=== PATIENT | female | born 1985 | race Two or more races ===

== ENCOUNTER 2021-08-26 13:41 | Inpatient (IN) | payer BC, OTHER ==
[~2021-08-26] VITALS: Ht 157.5 cm; Wt 84.0 kg
[2021-08-26 14:25] LABS: Basophils # (auto) 0.1 10 ^3/uL (0-0.2); Basophils % (auto) 2.2 % (0.0-2.0); Eosinophils # (auto) 0 10 ^3/uL (0-0.8); Eosinophils % (auto) 0.4 % (0.0-7.0); Hematocrit 38.2 % (36.0-46.0); Lymphocytes # (auto) 1.3 10 ^3/uL (0.4-5.4); Lymphocytes % (auto) 19.1 % (10.0-50.0); Mean Corpuscular Hemoglobin 31.2 pg (28.0-32.0); Mean Corpuscular Hgb Conc. 33.9 g/dL (32.0-36.0); Monocytes # (auto) 0.4 10 ^3/uL (0-1.3); Monocytes % (auto) 6.4 % (0.0-12.0); Neutrophils # (auto) 4.8 10 ^3/uL (1.6-8.6); Neutrophils % (auto) 71.9 % (37.0-80.0); Nucleated Red Blood Cells % 0.1 %; Red Blood Cells 4.15 10^6/uL (4.0-5.20); Red Cell Distribution Width 13.6 % (11.8-14.3); White Blood Cell 6.7 10^3/uL (4.4-10.8)
[2021-08-26 14:36] LABS: Urine Bacteria FEW /hpf (None Seen); Urine Blood TRACE /uL (Negative); Urine Specific Gravity 1.007 (1.001-1.035); Urine WBC 1 /hpf (0 - 5)
[2021-08-26 14:42] LABS: Albumin 3.6 g/dL (3.4-5.0); Calcium 8.7 mg/dL (8.5-10.1); Potassium 3.6 mmol/L (3.5-5.1)
[2021-08-26 14:53] LABS: BUN/Creatinine Ratio 9.6; Bilirubin, Total 0.9 mg/dL (0.2-1.0); Total Protein 6.8 g/dL (6.4-8.2)
[2021-08-26] MEDS ORDERED: CLOPIDOGREL BISULFATE 75 MG TAB PO ONE (15:45)
[2021-08-26] MEDS ORDERED: NITROGLYCERIN 0.4 MG SL TAB SL PRN (18:15)
[2021-08-26] MEDS ORDERED: MORPHINE SULFATE INJECTION 2 MG/ML SYRG IV PRN ×2 (18:15→19:15)
[2021-08-26] MEDS ORDERED: hydrALAZINE HCL 20 MG/ML VL IV PRN (19:15)
[2021-08-26] MEDS ORDERED: HYDROcodone-ACET 5/325MG TAB PO ONE (19:15)
[2021-08-26] MEDS ORDERED: LORazepam 0.5 MG TAB PO PRN (19:15)
[2021-08-26] MEDS ORDERED: ONDANSETRON HCL 4 MG/2 ML VIAL IV PRN (19:15)
[2021-08-26 21:20] VITALS: BP 125/79
[2021-08-26] MEDS ORDERED: LEV100T PO (22:15)
[2021-08-26] MEDS ORDERED: CHOL20007 PO (22:17)
[2021-08-26] MEDS: ATORVASTATIN 20 MG TAB PO SCH (22:31)
[2021-08-27] MEDS ORDERED: HYDROcodone-ACET 5/325MG TAB PO PRN
[2021-08-27 02:21] LABS: INR 1.03 (0.9-1.15); Partial Thromboplastin Time 26.4 sec (23.6-33.0)
[2021-08-27 05:20] VITALS: BP 117/76
[2021-08-27 07:55] LABS: INR 1.02 (0.9-1.15); Partial Thromboplastin Time 27.4 sec (23.6-33.0)
[2021-08-27 07:57] LABS: Albumin 3.4 g/dL (3.4-5.0); Calcium 8.6 mg/dL (8.5-10.1); Potassium 3.8 mmol/L (3.5-5.1)
[2021-08-27 08:00] VITALS: BP 138/79
[2021-08-27 08:01] LABS: BUN/Creatinine Ratio 11.8; Bilirubin, Total 0.8 mg/dL (0.2-1.0); CRP High Sensitivity 0.18 mg/dL (< 0.3); Phosphorus 3.2 mg/dL (2.5-4.90); Total Protein 6.5 g/dL (6.4-8.2)
[2021-08-27 09:00] VITALS: BP 138/79
[2021-08-27 10:22] LABS: Basophils # (auto) 0.1 10 ^3/uL (0-0.2); Basophils % (auto) 0.9 % (0.0-2.0); Eosinophils # (auto) 0.1 10 ^3/uL (0-0.8); Hematocrit 37.3 % (36.0-46.0); Hemoglobin 13.2 g/dL (12.2-16.2); Lymphocytes # (auto) 1.7 10 ^3/uL (0.4-5.4); Lymphocytes % (auto) 29.7 % (10.0-50.0); Mean Corpuscular Hemoglobin 32.4 pg (28.0-32.0); Mean Corpuscular Hgb Conc. 35.5 g/dL (32.0-36.0); Mean Corpuscular Volume 91.3 fL (80.0-100.0); Monocytes # (auto) 0.4 10 ^3/uL (0-1.3); Monocytes % (auto) 7.6 % (0.0-12.0); Neutrophils # (auto) 3.5 10 ^3/uL (1.6-8.6); Neutrophils % (auto) 60.8 % (37.0-80.0); Red Blood Cells 4.08 10^6/uL (4.0-5.20); Red Cell Distribution Width 13.5 % (11.8-14.3); White Blood Cell 5.8 10^3/uL (4.4-10.8)
[2021-08-27] MEDS: ASPirin 81 mg TAB PO SCH (12:03)
[2021-08-27] MEDS: ENOXAPARIN SOD 40 MG/0.4 ML SYRINGE SC SCH (12:04)
[2021-08-27 13:00] VITALS: BP 126/85
[2021-08-27 16:56] VITALS: BP 139/65
[2021-08-27] MEDS: ATORVASTATIN 20 MG TAB PO SCH (21:06)
[2021-08-27] MEDS: SODIUM CHLORIDE 0.9% 1,000 ML IV SCH (22:03)
[2021-08-27 22:59] LABS: Alcohol, Urine < 3.0 mg/dL (0-10); Amphetamine Screen, Urine NEGATIVE (NEGATIVE); Barbiturate Scree,Urine NEGATIVE (NEGATIVE); Benzodiazephine Screen, Urine NEGATIVE (NEGATIVE); Cannabinoid Screen, Urine NEGATIVE (NEGATIVE); Cocaine Screen, Urine NEGATIVE (NEGATIVE); Opiate Scree,Urine NEGATIVE (NEGATIVE); Phencyclidine Screen, Urine NEGATIVE (NEGATIVE)
[2021-08-27 23:26] VITALS: BP 106/73
[2021-08-28 05:38] VITALS: BP 115/68
[2021-08-28] MEDS: SODIUM CHLORIDE 0.9% 1,000 ML IV SCH ×3 (05:49→21:17)
[2021-08-28] MEDS: LEVOTHYROXINE SODIUM 112 MCG TAB PO SCH (06:07)
[2021-08-28 08:00] VITALS: BP 138/79
[2021-08-28 09:12] VITALS: BP 117/59
[2021-08-28] MEDS ORDERED: IOHEXOL 350 MG/ML 100ML IJ ONE (09:24)
[2021-08-28] MEDS: ASPirin 81 mg TAB PO SCH (11:04)
[2021-08-28] MEDS: ENOXAPARIN SOD 40 MG/0.4 ML SYRINGE SC SCH (11:04)
[2021-08-28 12:42] VITALS: BP 120/81
[2021-08-28 14:17] LABS: INR 1.1 (0.9-1.15); Partial Thromboplastin Time 31.7 sec (23.6-33.0)
[2021-08-28 17:21] VITALS: BP 110/74
[2021-08-28] MEDS: ATORVASTATIN 20 MG TAB PO SCH (21:17)
[2021-08-28 23:44] VITALS: BP 113/74
[2021-08-29] MEDS: SODIUM CHLORIDE 0.9% 1,000 ML IV SCH ×3 (05:18→21:24)
[2021-08-29 05:29] LABS: BUN/Creatinine Ratio 12.9; Calcium 8.1 mg/dL (8.5-10.1); Potassium 3.7 mmol/L (3.5-5.1)
[2021-08-29 05:34] VITALS: BP 113/74
[2021-08-29 05:38] LABS: Basophils # (auto) 0.1 10 ^3/uL (0-0.2); Basophils % (auto) 0.9 % (0.0-2.0); Eosinophils # (auto) 0.2 10 ^3/uL (0-0.8); Eosinophils % (auto) 2.6 % (0.0-7.0); Hematocrit 36.8 % (36.0-46.0); Hemoglobin 12.3 g/dL (12.2-16.2); Lymphocytes # (auto) 1.9 10 ^3/uL (0.4-5.4); Lymphocytes % (auto) 29.9 % (10.0-50.0); Mean Corpuscular Hemoglobin 30.9 pg (28.0-32.0); Mean Corpuscular Hgb Conc. 33.4 g/dL (32.0-36.0); Mean Corpuscular Volume 92.7 fL (80.0-100.0); Monocytes # (auto) 0.5 10 ^3/uL (0-1.3); Monocytes % (auto) 8.5 % (0.0-12.0); Neutrophils # (auto) 3.7 10 ^3/uL (1.6-8.6); Neutrophils % (auto) 58.1 % (37.0-80.0); Nucleated Red Blood Cells % 0.1 %; Red Blood Cells 3.97 10^6/uL (4.0-5.20); Red Cell Distribution Width 13.5 % (11.8-14.3); White Blood Cell 6.4 10^3/uL (4.4-10.8)
[2021-08-29] MEDS: LEVOTHYROXINE SODIUM 112 MCG TAB PO SCH ×2 (06:19→10:54)
[2021-08-29 08:00] VITALS: BP 138/79
[2021-08-29 09:00] VITALS: BP 117/76
[2021-08-29] MEDS ORDERED: LIDOCAINE VISCOUS 2% 15ML UD ONE (09:00)
[2021-08-29] MEDS ORDERED: diphenhdrAMINE HCL 50 MG/1 ML VL ONE (09:00)
[2021-08-29] MEDS ORDERED: MIDAZOLAM HCL 2MG/2ML 2ml VIAL (1mg/ml) ONE (09:01)
[2021-08-29] MEDS ORDERED: fentaNYL CITRATE 100 MCG/2 ML VL ONE (09:03)
[2021-08-29] MEDS: ASPirin 81 mg TAB PO SCH (10:47)
[2021-08-29] MEDS: ENOXAPARIN SOD 40 MG/0.4 ML SYRINGE SC SCH (11:42)
[2021-08-29 13:00] VITALS: BP 124/77
[2021-08-29 17:00] VITALS: BP 116/73
[2021-08-29] MEDS: ATORVASTATIN 20 MG TAB PO SCH (21:24)
[2021-08-29 22:00] VITALS: BP 105/70
[2021-08-30 05:00] VITALS: BP 117/72
[2021-08-30] MEDS: SODIUM CHLORIDE 0.9% 1,000 ML IV SCH (05:30)
[2021-08-30] MEDS ORDERED: LEVO75TA6 PO (08:10)
[2021-08-30] MEDS ORDERED: ASPI-498 OR (08:10)
[2021-08-30] MEDS ORDERED: ATO40T PO (08:10)
[2021-08-30] MEDS: ASPirin 81 mg TAB PO SCH (09:34)
[2021-08-30] MEDS: ENOXAPARIN SOD 40 MG/0.4 ML SYRINGE SC SCH (09:34)
== END 2021-08-30 12:00 | disposition home or self-care (01) | DRG 65 ==
LOC: ER 13:41 → TELE 18:10 → TELE-CENTR 21:20
PROVIDERS: ADMIT Hospitalist; ATTEND Family Medicine
PROC: B24BZZ4 Ultrasonography of Heart with Aorta, Transesophageal (ICD-10-PCS; principal; 2021-08-29)
DX: I63.9 Cerebral infarction, unspecified (principal); D68.9 Coagulation defect, unspecified; E66.01 Morbid (severe) obesity due to excess calories; E78.5 Hyperlipidemia, unspecified; F12.90 Cannabis use, unspecified, uncomplicated; E78.00 Pure hypercholesterolemia, unspecified; E06.3 Autoimmune thyroiditis; Z20.822 Contact with and (suspected) exposure to COVID-19; H93.19 Tinnitus, unspecified ear; Z68.33 Body mass index [BMI] 33.0-33.9, adult; Z79.890 Hormone replacement therapy; Z87.891 Personal history of nicotine dependence; Z79.899 Other long term (current) drug therapy; Z79.82 Long term (current) use of aspirin; Z80.0 Family history of malignant neoplasm of digestive organs; Z80.3 Family history of malignant neoplasm of breast; Z80.49 Family history of malignant neoplasm of other genital organs; Z82.3 Family history of stroke; Z82.49 Family history of ischemic heart disease and other diseases of the circulatory system; Z83.3 Family history of diabetes mellitus; Z88.2 Allergy status to sulfonamides; Z88.1 Allergy status to other antibiotic agents; Z98.51 Tubal ligation status
CPT/HCPCS: 36415; 70450; 70496; 70498; 70551; 80048; 80053; 80061; 80307; 81001; 81241; 82728; 82962; 83735; 84100; 84443; 84484; 84702; 85025; 85301; 85302; 85303; 85305; 85306; 85379; 85610; 85613; 85652; 85670; 85705; 85730; 85732; 86141; 86147; 87040; 87086; 87426; 93005; 93306; 93312; 93886; 96360; 96372; G0378; J2250